=== PATIENT | male | born 1995 | race African-American/Black ===

== ENCOUNTER 2024-09-23 19:56 | Emergency (ER) | payer BC, SELFPAY ==
[2024-09-23] VITALS (8 sets, daily range): BP systolic 124–150; BP diastolic 64–87; PULSE 52–85; RESP 17; TEMP 36.9; O2SAT 96–98; BMI 44.6
--- NOTE | 2024-09-23 20:09 | CT_ITS ---
PROCEDURE INFORMATION: Exam: CT Lumbar Spine Without Contrast Exam date and time: 09/23/2024 8:36 PM Age: 29 years old Clinical indication: Low back pain; Additional info: Back pain, right-sided radicular pain TECHNIQUE: Imaging protocol: Computed tomography of the lumbar spine without contrast. Radiation optimization: All CT scans at this facility use at least one of these dose optimization techniques: automated exposure control; mA and/or kV adjustment per patient size (includes targeted exams where dose is matched to clinical indication); or iterative reconstruction. COMPARISON: No relevant prior studies available. FINDINGS: Bones/joints: Surgically absent No acute fracture. Chronically absent left L2 inferior facet. L1/2: No significant disc herniation or disc bulge. Facet/ligamentum flavum hypertrophy. No central canal narrowing. Moderate left foraminal narrowing. Mild right neural foraminal narrowing. L2/3: No significant disc herniation or disc bulge. Facet/ligamentum flavum hypertrophy. No central canal narrowing. No neural foraminal narrowing. L3/4: [id number]-[id number] degenerative broad-based disc/osteophyte complex. Facet/ligamentum flavum hypertrophy. No central canal narrowing. [id number]-[id number] bilateral neural foraminal narrowing. L4/5: Broad-based central disc/osteophyte protrusion measuring 1.5 x 1.0 cm. Facet/ligamentum flavum hypertrophy. Severe central canal narrowing. Moderately severe to severe bilateral neural foraminal narrowing. L5/S1: 1.4 x 1.6 cm broad-based disc protrusion. Facet/ligamentum flavum hypertrophy. Moderately severe central canal narrowing. Severe bilateral neural foraminal narrowing. Soft tissues: Unremarkable. IMPRESSION: L4/5 and L5/S1 disc protrusion contributing to central canal and bilateral neural foraminal narrowing. Less pronounced neural foraminal narrowing at other levels. Recommend further imaging evaluation with MRI as CT scan especially without contrast exaggerates central canal and neural foraminal narrowing.
--- NOTE | 2024-09-23 20:11 | ED_ITS ---
Discharge Plan Disposition Patient Disposition: Home, Self-Care Condition: Good Prescriptions Prescriptions: New methocarbamol 750 mg tablet 750 mg PO Q8H PRN (Reason: pain) Qty: 20 0RF lidocaine 5 % adhesive patch,medicated See Rx Instructions .ROUTE .COMPLEX Qty: 15 0RF Rx Instructions: Apply to most painful area and leave on for 12 hours. Remove and leave off for 12 hours before using a new patch. Referrals Follow up/Referrals: Kourtney Nicholson DO [Primary Care Provider] - See instructions Activity Restrictions/Add. Instructions Additional Instructions/Restrictions: You were evaluated in the emergency department today. Please keep close follow- up with your primary care provider as well as with your spine surgery team. 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 Do not drive or operate machinery after taking this medication as it may make you sleepy. Use the prescribed lidocaine patches as directed. You may also take Tylenol and ibuprofen every 4-6 hours as needed for pain. Follow-up with your primary care doctor for reevaluation. Keep your appointment with neurosurgery as scheduled. Return to the emergency department for new or worsening symptoms, such as new numbness and tingling, inability to control your bladder or bowels. Clinical Impressions Clinical Impression: Strain of lumbar region Stand Alone Forms Stand Alone Forms: Work/School Release Instructions Patient Instructions: DI for Low Back Pain Print Language Print Language: Congolese Discharge ED Provider: Hailee Marie General Adult HPI <SHAMA Bobby - Last Filed: 09/23/24 22:05> General Chief complaint: Back Pain/Injury Stated complaint: Back Pain Time Seen by Provider: 09/23/24 20:08 Mode of Arrival: EMS Source of Information: Patient Limitations: No Limitations History of Present Illness HPI narrative: 29-year-old male presents to the emergency department via EMS with right-sided lower back pain and right sided radicular pain that extends posterior laterally down the patient's right leg with some associated numbness and tingling at times, he states he has been dealing with this chronic back pain for at least 1 year, 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 He has not worked since June 2024, today he had to go and break up a fight that occurred between his dog and my neighbors dog , he admits to having to medicinal plant picker his dog , which he believes may have exacerbated his lower back pain. He has been undergoing physical therapy with little to no relief, he has had 2 epidural steroid injections and been undergoing pain management, with some relief to his symptomatology, had recent slated epidural/pain management appointment, but decided to cancel the appointment, he has already seen neurosurgery/spinal surgery evaluation, and found to be a surgical candidate, but opted to try conservative measures prior. He does have upcoming appointment in October 2024 scheduled with his neurosurgery/spine surgery team. He has taken 1600 mg ibuprofen today with little to no relief of symptomatology as well as muscle relaxer p.o. for which he been prescribed, also takes gabapentin which does provide some relief, he believes his episode of worsening pain today is associated with having to medicinal plant picker his dog , with a past medical history consistent with hypertension, patient denies any alcohol or tobacco use, utilizes occasional marijuana use, did take some CBD Gummies , today for his symptomatology, patient denies any upper or lower extremity weakness, denies any fever chills chest pain shortness of breath, abdominal pain, nausea or vomiting, denies any urinary bladder or bowel dysfunction. I was able to review the patient's MRI lumbar spine, radiology report, via his cell phone, that was performed in July 2024, patient L4-L5 has broad-based disc extrusion, with mild inferior central extension mild endplate spurring moderate facet arthropathy, the severe central canal stenosis, moderate left and mild right neuroforaminal stenosis, at L5-S1 broad-based disc extrusion with inferior extension centrally, mild endplate spurring, there is moderate/severe bilateral neuroforaminal stenosis. He has mild endplate spurring moderate facet arthropathy, mild central canal stenosis at L3-L4. Initial triage vitals unremarkable. Onset (ago): month(s) Related Data Previous Rx's ?Medication ?Instructions ?Recorded methocarbamol 750 mg tablet 750 mg PO Q8H PRN pain #20 tabs 09/23/24 lidocaine 5 % topical patch See Rx Instructions topical 09/24/24 .COMPLEX #15 ea Allergies Allergy/AdvReac Type Severity Reaction Status Date / Time No Known Allergies Allergy Verified 09/23/24 20:16 [facility] <SHAMA Bobby - Last Filed: 09/23/24 22:05> [facility] Disclaimer: The information contained in this section may have been updated after the patient was seen, as this information can be updated by other users. Social History (Updated 09/23/24 @ 22:05 by SHAMA Bobby) Smoking Status: Former smoker alcohol intake: never current occupational status: other Travel in the last 8 weeks?: None Have you lived/traveled outside [place] in past 30 days?: No Contact w/someone who lives/traveled outside US past 30 days?: No Exposure to someone with infectious disease in past 14 days?: No Do you have a fever (greater than 100.4 F or 38 C)?: No Have you tested positive for COVID-19?: No Exposed to someone with COVID-19 in past 14 days?: No Do you have a sore throat?: No Do you have a cough?: No Do you have any weakness?: No Do you have any diarrhea?: No Are you experiencing any unusual bleeding?: No Do you have any muscle aches/pain?: No Do you have any abdominal pain?: No Are you experiencing loss of taste or smell?: No <SHAMA Bobby - Last Filed: 09/23/24 22:05> ROS Obtained: Yes All systems reviewed & no additional complaints except as documented Physical Exam <SHAMA Bobby - Last Filed: 09/23/24 22:05> General General appearance: alert and in no apparent distress Head Head exam: atraumatic and normocephalic Eye Eye exam: Present PERRL and EOMI ENT ENT exam: Present mucous membranes moist Neck Neck exam: Present normal inspection Chest Chest inspection: Present normal inspection and symmetric chest wall rise Respiratory Respiratory exam: Present normal lung sounds bilaterally; Absent respiratory distress Cardiovascular Cardiovascular exam: Present regular rate and normal rhythm Abdominal Exam Abdominal exam: Present soft; Absent tenderness Extremities Exam Extremities exam: Present normal inspection Back Exam Back exam: Present paraspinal tenderness and straight leg raise (R); Absent full ROM or vertebral tenderness Comment: There is mild right paraspinal tenderness to palpation to the lower lumbar spine, positive straight leg test on the right Neurological Exam Neurological exam: Present alert, oriented X3 and other (Patient has 5 out of 5 strength in the bilateral lower and upper extremities, no gross sensation deficit. ) Psychiatric Psychiatric exam: Present normal affect Skin Skin exam: Present warm and dry Medical Decision Making <SHAMA Bobby - Last Filed: 09/23/24 22:05> Medical Records Medical records reviewed: Yes I reviewed the patient's medical records. Screening: Per USPSTF and CDC recommendations, given the prevalence of disease in our region, it is our hospital?s policy to screen for HIV and viral Hepatitis for all patients aged 18 and over and those with ongoing risk factors. Jostin Inquiry Pt receiving controlled substance: No Jostin was queried for this patient: No Vital Signs: 09/23/24 20:01 09/23/24 20:11 09/23/24 21:01 Temperature 98.4 F Temperature Source Oral Pulse Rate 62 52 L Pulse Rate [Right Brachial] 85 Respiratory Rate 17 Blood Pressure 125/69 131/74 Blood Pressure [Right Arm] 125/69 Blood Pressure Mean 87 91 Blood Pressure Mean [Right Arm] 87 Blood Pressure Source [Right Arm] Manual Cuff/ Doppler Blood Pressure Position [Right Arm] Sitting 02 Sat by Pulse Oximetry 97 98 97 Oxygen Delivery Method Room Air 09/23/24 21:30 09/23/24 22:00 09/23/24 22:59 Temperature Temperature Source Pulse Rate 60 60 60 Pulse Rate [Right Brachial] Respiratory Rate Blood Pressure 149/87 H 142/72 H 124/64 Blood Pressure [Right Arm] Blood Pressure Mean 84 Blood Pressure Mean [Right Arm] Blood Pressure Source [Right Arm] Blood Pressure Position [Right Arm] 02 Sat by Pulse Oximetry 96 98 97 Oxygen Delivery Method 09/23/24 23:01 09/23/24 23:31 Temperature Temperature Source Pulse Rate 61 60 Pulse Rate [Right Brachial] Respiratory Rate Blood Pressure 126/66 150/85 H Blood Pressure [Right Arm] Blood Pressure Mean 85 101 Blood Pressure Mean [Right Arm] Blood Pressure Source [Right Arm] Blood Pressure Position [Right Arm] 02 Sat by Pulse Oximetry 98 97 Oxygen Delivery Method Orders (Tests/Meds): ED MEDICATIONS Discontinued Medications Generic Name Dose Route Start Last Admin Trade Name Freq PRN Reason Stop Dose Admin Acetaminophen 1,000 mg 09/23/24 20:11 09/23/24 20:21 Acetaminophen 500mg Tab PO 09/23/24 20:12 1,000 mg ONCE ONE Administration Gabapentin 300 mg 09/23/24 23:00 09/23/24 23:34 Gabapentin 300mg Capsule PO 09/23/24 23:01 300 mg ONCE ONE Administration Ketorolac Tromethamine 30 mg 09/23/24 23:00 09/23/24 23:34 Ketorolac 30mg/Ml Vial IM 09/23/24 23:01 30 mg ONCE ONE Administration Lidocaine 1 each 09/23/24 22:13 09/23/24 22:18 Lidocaine 5% Transdermal Patch TD 09/23/24 22:14 1 each ONCE ONE Administration Methocarbamol 1,000 mg 09/23/24 22:13 09/23/24 22:18 Methocarbamol 500mg Tablet PO 09/23/24 22:14 1,000 mg ONCE ONE Administration Morphine Sulfate 4 mg 09/23/24 20:11 09/23/24 20:20 Morphine 2mg/Ml Syringe IM 09/23/24 20:12 4 mg ONCE ONE Administration ORDERS Category Date Time Status CT lumbar spine wo con Stat Cat Scan 09/23/24 20:09 Completed Medical Decision Narrative: 29-year-old male presents to the emergency department EMS for lower back pain with right-sided radiculopathy, differential diagnose include but not limited to degenerative disc disease of lumbar spine, acute lumbar sacral strain, herniated nucleus pulposus, facet arthropathy, acute sciatica, neuroforaminal stenosis Will obtain CT lumbar spine without contrast for further evaluation as characterization, will give 4 mg IM morphine, and 1000 mg p.o. Tylenol for pain. I discussed patient case with inpatient Dr. Marie, at shift change, she will be assuming the patient's care/workup. Disposition is pending CT lumbar spine radiology read and adequate pain control. <Hailee Marie, DO - Last Filed: 09/23/24 23:25> Vital Signs: 09/23/24 20:01 09/23/24 20:11 09/23/24 21:01 Temperature 98.4 F Temperature Source Oral Pulse Rate 62 52 L Pulse Rate [Right Brachial] 85 Respiratory Rate 17 Blood Pressure 125/69 131/74 Blood Pressure [Right Arm] 125/69 Blood Pressure Mean 87 91 Blood Pressure Mean [Right Arm] 87 Blood Pressure Source [Right Arm] Manual Cuff/ Doppler Blood Pressure Position [Right Arm] Sitting 02 Sat by Pulse Oximetry 97 98 97 Oxygen Delivery Method Room Air 09/23/24 21:30 09/23/24 22:00 09/23/24 22:59 Temperature Temperature Source Pulse Rate 60 60 60 Pulse Rate [Right Brachial] Respiratory Rate Blood Pressure 149/87 H 142/72 H 124/64 Blood Pressure [Right Arm] Blood Pressure Mean 84 Blood Pressure Mean [Right Arm] Blood Pressure Source [Right Arm] Blood Pressure Position [Right Arm] 02 Sat by Pulse Oximetry 96 98 97 Oxygen Delivery Method 09/23/24 23:01 09/23/24 23:31 Temperature Temperature Source Pulse Rate 61 60 Pulse Rate [Right Brachial] Respiratory Rate Blood Pressure 126/66 150/85 H Blood Pressure [Right Arm] Blood Pressure Mean 85 101 Blood Pressure Mean [Right Arm] Blood Pressure Source [Right Arm] Blood Pressure Position [Right Arm] 02 Sat by Pulse Oximetry 98 97 Oxygen Delivery Method Orders (Tests/Meds): ED MEDICATIONS Discontinued Medications Generic Name Dose Route Start Last Admin Trade Name Freq PRN Reason Stop Dose Admin Acetaminophen 1,000 mg 09/23/24 20:11 09/23/24 20:21 Acetaminophen 500mg Tab PO 09/23/24 20:12 1,000 mg ONCE ONE Administration Gabapentin 300 mg 09/23/24 23:00 09/23/24 23:34 Gabapentin 300mg Capsule PO 09/23/24 23:01 300 mg ONCE ONE Administration Ketorolac Tromethamine 30 mg 09/23/24 23:00 09/23/24 23:34 Ketorolac 30mg/Ml Vial IM 09/23/24 23:01 30 mg ONCE ONE Administration Lidocaine 1 each 09/23/24 22:13 09/23/24 22:18 Lidocaine 5% Transdermal Patch TD 09/23/24 22:14 1 each ONCE ONE Administration Methocarbamol 1,000 mg 09/23/24 22:13 09/23/24 22:18 Methocarbamol 500mg Tablet PO 09/23/24 22:14 1,000 mg ONCE ONE Administration Morphine Sulfate 4 mg 09/23/24 20:11 09/23/24 20:20 Morphine 2mg/Ml Syringe IM 09/23/24 20:12 4 mg ONCE ONE Administration ORDERS Category Date Time Status CT lumbar spine wo con Stat Cat Scan 09/23/24 20:09 Completed Medical Decision Narrative: 29-year-old male presents to the emergency department EMS for lower back pain with right-sided radiculopathy, differential diagnose include but not limited to degenerative disc disease of lumbar spine, acute lumbar sacral strain, herniated nucleus pulposus, facet arthropathy, acute sciatica, neuroforaminal stenosis Will obtain CT lumbar spine without contrast for further evaluation as characterization, will give 4 mg IM morphine, and 1000 mg p.o. Tylenol for pain. I discussed patient case with inpatient Dr. Marie, at shift change, she will be assuming the patient's care/workup. Disposition is pending CT lumbar spine radiology read and adequate pain control. DO Frank: I was consulted by the VERO, and we discussed the complexity of the problems being addressed. I approved the treatment and management plan for this patient's care in the emergency department, thus performing a substantive portion of the medical decision making. On my assessment of the patient, he is feeling no better. He has no alarm findings or symptoms suggestive of cauda equina syndrome or spinal cord compression. He complains of pain in his right side of his back and right calf. He states he gets some improvement positionally but then the pain comes back. Unfortunately, CT scan reads were delayed because of a radiology issue, so CT scan did not read at time of signout to oncoming provider, Dr. Baig. To further increase pain control, I added IM Toradol, oral Robaxin, topical Lidoderm patch, and oral gabapentin. Patient care signed out pending CT read and reassessment for pain control. Hailee Marie DO <Arash Baig MD - Last Filed: 09/24/24 00:21> Vital Signs: 09/23/24 20:01 09/23/24 20:11 09/23/24 21:01 Temperature 98.4 F Temperature Source Oral Pulse Rate 62 52 L Pulse Rate [Right Brachial] 85 Respiratory Rate 17 Blood Pressure 125/69 131/74 Blood Pressure [Right Arm] 125/69 Blood Pressure Mean 87 91 Blood Pressure Mean [Right Arm] 87 Blood Pressure Source [Right Arm] Manual Cuff/ Doppler Blood Pressure Position [Right Arm] Sitting 02 Sat by Pulse Oximetry 97 98 97 Oxygen Delivery Method Room Air 09/23/24 21:30 09/23/24 22:00 09/23/24 22:59 Temperature Temperature Source Pulse Rate 60 60 60 Pulse Rate [Right Brachial] Respiratory Rate Blood Pressure 149/87 H 142/72 H 124/64 Blood Pressure [Right Arm] Blood Pressure Mean 84 Blood Pressure Mean [Right Arm] Blood Pressure Source [Right Arm] Blood Pressure Position [Right Arm] 02 Sat by Pulse Oximetry 96 98 97 Oxygen Delivery Method 09/23/24 23:01 09/23/24 23:31 Temperature Temperature Source Pulse Rate 61 60 Pulse Rate [Right Brachial] Respiratory Rate Blood Pressure 126/66 150/85 H Blood Pressure [Right Arm] Blood Pressure Mean 85 101 Blood Pressure Mean [Right Arm] Blood Pressure Source [Right Arm] Blood Pressure Position [Right Arm] 02 Sat by Pulse Oximetry 98 97 Oxygen Delivery Method Orders (Tests/Meds): ED MEDICATIONS Discontinued Medications Generic Name Dose Route Start Last Admin Trade Name [place] PRN Reason Stop Dose Admin Acetaminophen 1,000 mg 09/23/24 20:11 09/23/24 20:21 Acetaminophen 500mg Tab PO 09/23/24 20:12 1,000 mg ONCE ONE Administration Gabapentin 300 mg 09/23/24 23:00 09/23/24 23:34 Gabapentin 300mg Capsule PO 09/23/24 23:01 300 mg ONCE ONE Administration Ketorolac Tromethamine 30 mg 09/23/24 23:00 09/23/24 23:34 Ketorolac 30mg/Ml Vial IM 09/23/24 23:01 30 mg ONCE ONE Administration Lidocaine 1 each 09/23/24 22:13 09/23/24 22:18 Lidocaine 5% Transdermal Patch TD 09/23/24 22:14 1 each ONCE ONE Administration Methocarbamol 1,000 mg 09/23/24 22:13 09/23/24 22:18 Methocarbamol 500mg Tablet PO 09/23/24 22:14 1,000 mg ONCE ONE Administration Morphine Sulfate 4 mg 09/23/24 20:11 09/23/24 20:20 Morphine 2mg/Ml Syringe IM 09/23/24 20:12 4 mg ONCE ONE Administration ORDERS Category Date Time Status CT lumbar spine wo con Stat Cat Scan 09/23/24 20:09 Completed Medical Decision Narrative: 29-year-old male presents to the emergency department EMS for lower back pain with right-sided radiculopathy, differential diagnose include but not limited to degenerative disc disease of lumbar spine, acute lumbar sacral strain, herniated nucleus pulposus, facet arthropathy, acute sciatica, neuroforaminal stenosis Will obtain CT lumbar spine without contrast for further evaluation as characterization, will give 4 mg IM morphine, and 1000 mg p.o. Tylenol for pain. I discussed patient case with inpatient Dr. Marie, at shift change, she will be assuming the patient's care/workup. Disposition is pending CT lumbar spine radiology read and adequate pain control. DO Frank: I was consulted by the VERO, and we discussed the complexity of the problems being addressed. I approved the treatment and management plan for this patient's care in the emergency department, thus performing a substantive portion of the medical decision making. On my assessment of the patient, he is feeling no better. He has no alarm findings or symptoms suggestive of cauda equina syndrome or spinal cord compression. He complains of pain in his right side of his back and right calf. He states he gets some improvement positionally but then the pain comes back. Unfortunately, CT scan reads were delayed because of a radiology issue, so CT scan did not read at time of signout to oncoming provider, Dr. Baig. To further increase pain control, I added IM Toradol, oral Robaxin, topical Lidoderm patch, and oral gabapentin. Patient care signed out pending CT read and reassessment for pain control. DO Jovanni Vazquez: Upon my assumption of care patient is stable and resting comfortably. I agree with the assessment and plan from Dr. Marie. CT imaging was pending, I personally interpreted CT and did not appreciate acute osseous injury though there is an osteophyte. Radiology read comments on multilevel disc abnormalities. I reached out to the radiologist and specifically discussed the findings with him. He stated the patient should have nonemergent outpatient MRI follow-up and that the findings in the low back appear to largely be chronic. On reassessment patient's pain is better controlled. Postvoid residual bladder scan demonstrates a volume of 7 mL which is further reassurance against cauda equina. Patient also has no saddle anesthesia, paralysis, weakness, or bowel or bladder incontinence or retention. Patient is appropriate for discharge at this time. He reports he has follow-up with a neurosurgeon for his back in October. I encouraged him to keep this appointment. He was prescribed Robaxin and lidocaine patches for outpatient management of pain. I instructed him to follow-up closely with his PCP for reevaluation as well. He indicated understanding to all verbal and written instructions and the patient was discharged in stable condition. Critical Care <SHAMA Bobby - Last Filed: 09/23/24 22:05> Critical Care Time Critical Care Time: No
[2024-09-23] MEDS: MORPHINE 2MG/ML SYRINGE 4 MG IM (20:20)
[2024-09-23] MEDS: ACETAMINOPHEN 500MG TAB 1000 MG PO (20:21)
[2024-09-23] MEDS: LIDOCAINE 5% TRANSDERMAL PATCH 1 EACH TD (22:18)
[2024-09-23] MEDS: METHOCARBAMOL 500MG TABLET 1000 MG PO (22:18)
--- NOTE | 2024-09-23 23:01 | PC.NURSE ---
notified Dr Marie of pt requesting pain medication
[2024-09-23] MEDS: KETOROLAC 30MG/ML VIAL 30 MG IM (23:34)
[2024-09-23] MEDS: GABAPENTIN 300MG CAPSULE 300 MG PO (23:34)
[2024-09-24] VITALS: BP 117/54; PULSE 60; O2SAT 96
[2024-09-24 00:20] VITALS: BP 117/54; PULSE 51; RESP 20; TEMP 36.7; O2SAT 95
== END 2024-09-24 00:31 | disposition home or self-care (01) ==
PROVIDERS: Emergency Provider Emergency Medicine; PCP Family Medicine
DX: S39.012A Strain of muscle, fascia and tendon of lower back, initial encounter (principal); M51.27 Other intervertebral disc displacement, lumbosacral region; X50.0XXA Overexertion from strenuous movement or load, initial encounter
CPT/HCPCS: 72131; 96372; 99284; J1885; J2270